=== PATIENT | male | born 1945 | race Caucasian/White ===

== ENCOUNTER 2017-11-17 14:49 | Observation (INO) | payer BC, OTHER ==
[~2017-11-17] VITALS: Ht 170.2 cm; Wt 68.9 kg
[2017-11-17 15:54] LABS: BASOPHIL COUNT 0.1 K/uL (0-0.1); EOSINOPHIL (%) 1.5 % (0-5); EOSINOPHIL COUNT 0.1 K/uL (0-0.3); HEMATOCRIT 46.1 % (38.0-50.0); HEMOGLOBIN 16.2 G/DL (12.5-16.6); IMMATURE GRANULOCYTE (%) 0.9 % (0.0-0.7); LYMPHOCYTE (%) 19.9 % (15-42); LYMPHOCYTE COUNT 1.6 K/uL (1.0-2.8); MCH 34.6 PG (29.0-34.0); MCHC 35.1 G/DL (30.0-36.0); MCV 98.5 FL (86-99); MONOCYTE (%) 11.6 % (3-12); MONOCYTE COUNT 0.9 K/uL (0-0.8); NEUTROPHIL (%) 65.1 % (45-76); NEUTROPHIL COUNT 5.1 K/uL (1.8-6.4); PLATELET COUNT 181 K/uL (156-360); RBC DIS.WIDTH-CV 15.2 % (11.8-14.6); RBC DIS.WIDTH-SD 54.7 % (39-53); RED BLOOD COUNT 4.68 M/uL (4.00-5.50); WHITE BLOOD COUNT 7.8 K/uL (4.1-10.2)
[2017-11-17 16:05] LABS: ALBUMIN 3.7 g/dL (3.2-4.8); CHLORIDE 103 mEq/L (99-109); POTASSIUM 3.8 mEq/L (3.7-5.4); SODIUM 139 mEq/L (136-147)
[2017-11-17 16:07] LABS: GLUCOSE 132 mg/dL (70-99); TOTAL PROTEIN 5.9 g/dL (6.4-8.3)
[2017-11-17 16:09] LABS: TOTAL BILIRUBIN 0.6 mg/dL (0.0-1.0)
[2017-11-17 16:11] LABS: ALKALINE PHOSPHATASE 62 IU/L (3-129); CREATININE 0.8 mg/dL (0.6-1.3); GFR ESTIMATE (CALCULATED) > 59 mL/min/ (58.99-99999)
[2017-11-17 16:12] LABS: AST (GOT) 45 IU/L (2-34); UREA NITROGEN (BUN) 11 mg/dL (9-23)
[2017-11-17 16:14] LABS: ALT (GPT) 34 IU/L (3-49)
[2017-11-17] MEDS ORDERED: PRADAXA150 MG PO (17:49)
[2017-11-17] MEDS ORDERED: CARDIZEM CD,CA240 MG PO (17:50)
[2017-11-17] MEDS ORDERED: ALLOPURINOL100 MG PO (17:50)
[2017-11-17] MEDS ORDERED: ATORVASTATIN CA10 MG PO (17:50)
[2017-11-17] MEDS ORDERED: COLCRYS0.6 MG PO (17:51)
[2017-11-17] MEDS ORDERED: PREDNISONE20 MG PO (17:51)
[2017-11-17 19:48] LABS: INTER. NORMALIZED RATIO 0.9
[2017-11-17 19:50] LABS: PTT 29.3 SEC (25-37)
[2017-11-17 20:02] LABS: HEMATOCRIT 46.9 % (38.0-50.0); HEMOGLOBIN 16.6 G/DL (12.5-16.6); MCH 34.7 PG (29.0-34.0); MCHC 35.4 G/DL (30.0-36.0); MCV 97.9 FL (86-99); PLATELET COUNT 193 K/uL (156-360); RBC DIS.WIDTH-SD 54.5 % (39-53); RED BLOOD COUNT 4.79 M/uL (4.00-5.50); WHITE BLOOD COUNT 7.2 K/uL (4.1-10.2)
[2017-11-17 20:21] LABS: HDL CHOLESTEROL 57 MG/DL (Desirable>=40); LDL CHOLESTEROL 52 mg/dL (Desirable<100); NON-HDL CHOLESTEROL 75 mg/dL (Desirable<160); TOTAL CHOLESTEROL 132 mg/dL (Desirable<200); TRIGLYCERIDES 114 MG/DL (Normal: <150)
[2017-11-17 21:23] LABS: FOLIC ACID (FOLATE) 9.9 NG/ML (5.0-22.0)
[2017-11-17 22:27] VITALS: BP 153/89
[2017-11-18 04:32] VITALS: BP 136/40
[2017-11-18 07:43] VITALS: BP 112/67
[2017-11-18 11:11] VITALS: BP 104/65
[2017-11-18 15:15] VITALS: BP 95/54
[2017-11-18] MEDS ORDERED: ELIQUIS5 MG PO (16:03)
[2017-11-18] MEDS ORDERED: NICOTINE PATCH1 EAC1 TD (16:03)
== END 2017-11-18 16:55 | disposition home or self-care (01) ==
LOC: EME 14:49 → EDOF 18:55 → ENRESERV 19:00 → 5WEST 22:21 → ENPENDDIS 11-18 → 5WEST 11-18 16:55
PROVIDERS: Family Medicine; Hospitalist
DX: G45.9 Transient cerebral ischemic attack, unspecified (principal); I16.0 Hypertensive urgency; I10 Essential (primary) hypertension; F17.210 Nicotine dependence, cigarettes, uncomplicated; Z72.89 Other problems related to lifestyle; Z91.19 Patient's noncompliance with other medical treatment and regimen; I48.1 Persistent atrial fibrillation; I48.2 Chronic atrial fibrillation; R00.1 Bradycardia, unspecified; E78.5 Hyperlipidemia, unspecified; Z79.82 Long term (current) use of aspirin; Z82.49 Family history of ischemic heart disease and other diseases of the circulatory system
CPT/HCPCS: 70450; 70496; 70498; 70551; 80053; 80061; 81003; 82607; 82746; 83036; 84443; 85025; 85027; 85379; 85610; 85730; 93005; 99281; 99285; G0378; J2060